=== PATIENT | female | born 1980 | race Caucasian/White ===

== ENCOUNTER 2018-08-23 16:51 | Emergency (ER) | payer BC ==
[~2018-08-23] VITALS: Ht 152.4 cm; Wt 100.0 kg
[2018-08-23] MEDS ORDERED: IBUP80TA PO (16:58)
[2018-08-23] MEDS ORDERED: LIDOCAINE 2% MDV 20 ML VIAL As Ordered ONE (19:22)
[2018-08-23] MEDS ORDERED: LIDOCAINE 2% MDV 20 ML VIAL SC ONE (19:30)
[2018-08-23 20:14] VITALS: BP 135/77
--- NOTE | 2018-08-24 11:23 | REP ---
RIGHT FINGERS, FOUR VIEWS: HISTORY: Post reduction. COMPARISON: 08/23/2018. The patient is status-post reduction of a dislocation of the intermediate phalange of the 4th digit. There is no fracture. IMPRESSION: The patient is status-post of a reduction of a dislocation of the intermediate phalange of the 4th digit. There is anatomic alignment. Electronically Signed by Chinedu Banks MD 08/24/2018 11:27 A
== END 2018-08-23 20:19 | disposition home or self-care (01) ==
LOC: M ED 16:51
DX: S63.264A Dislocation of metacarpophalangeal joint of right ring finger, initial encounter (principal); W01.0XXA Fall on same level from slipping, tripping and stumbling without subsequent striking against object, initial encounter; Y92.89 Other specified places as the place of occurrence of the external cause

== ENCOUNTER → 2018-08-23 | Outpatient (CLI) | payer BC ==
[~2018-08-23] MED LIST: IBUP80TA PO
--- NOTE | 2018-08-23 17:26 | REP ---
RIGHT FINGERS, FOUR VIEWS: HISTORY: Pain. There is no acute fracture. There is posterior and lateral dislocation of the intermediate phalange of the 4th digit with respect to the proximal phalange. There is no fracture. The remaining joint spaces are normal in appearance. IMPRESSION:Dislocation of the 4th intermediate phalange. Electronically Signed by Chinedu Banks MD 08/23/2018 05:32 P
== END ==
LOC: M WUC 15:40
PROVIDERS: ATTEND Physician Assistant
DX: S63.284A Dislocation of proximal interphalangeal joint of right ring finger, initial encounter (principal); X58.XXXA Exposure to other specified factors, initial encounter; Y92.9 Unspecified place or not applicable; M79.644 Pain in right finger(s)